=== PATIENT | female | born 1990 | race Caucasian/White ===

== ENCOUNTER 2017-02-23 20:32 | Emergency (ER) | payer OTHER ==
[~2017-02-23] VITALS: Ht 177.8 cm; Wt 71.4 kg
[~2017-02-23 20:32] MED LIST: BCPILLS PO; FLR1 PO; HYD10 PO; SYN50 PO
[2017-02-23 20:36] VITALS: TEMP 36.7; Ht 177.8 cm; Wt 71.4 kg
[2017-02-23] MEDS ORDERED: TACR0.1O6 TOP (20:46)
[2017-02-23] MEDS ORDERED: NORE-39 PO (20:46)
[2017-02-23] MEDS ORDERED: DICY10CA12 PO (20:46)
[2017-02-23] MEDS ORDERED: SYN88 PO (20:46)
[2017-02-23] MEDS ORDERED: CALC1CRE2 TOP (20:46)
[2017-02-23] MEDS ORDERED: HYD10 PO ×2 (20:46)
[2017-02-23] MEDS ORDERED: FLUD0.1T10 PO (20:46)
[2017-02-23] MEDS ORDERED: SODIUM CHLORIDE 0.9% 1000ML 1,000 ML IV ONE (20:58)
[2017-02-23] MEDS ORDERED: SODIUM CHLORIDE 0.9% 1000ML 1,000 ML IV STA (20:58)
--- NOTE | 2017-02-23 21:03 | EMERGENCY ROOM VISIT NOTE ---
History Report prepared by Cory: Luana Proctor Under the Supervision of: Dr. Gui Malcolm M.D. First contact with patient: 20:49 Chief Complaint: HYPOTENSION Stated Complaint: LOW BLOOD PRESSURE, STOMACH PAIN History of Present Illness The patient is a 26 year old female who presents to the Emergency Room with complaints of constant burning lower abdominal pain beginning yesterday. She states that her pain lessened with eating. The patient went to Urgent Care prior to arrival and her blood pressure was 86/50. The patient was referred to the ED for hypotension by Urgent Care. The patient was given Decadron at Urgent Care about an hour ago. She denies any chest pain, shortness of breath, urinary symptoms, blood in stool, lightheadedness or dizziness. She notes a slight fever. The patient has a history of [place]'s disease. Source of History: patient, parent, family Onset: yesterday Position: abdomen Quality: burning Timing: constant Modifying Factors (Relieving): eating Associated Symptoms: + fevers, No chest pain, No SOB, No urinary symptoms Note: Pt denies blood in stool, lightheadedness or dizziness. Review of Systems See HPI for pertinent positives & negatives. A total of 10 systems reviewed and were otherwise negative. Past Medical & Surgical Medical Problems: (1) Addisons disease (2) Hyperkalemia (3) Hypothyroidism (4) Other Dystrophy Of Vulva (5) Vitiligo Surgical Problems: (1) No significant past surgical history Old medical records were reviewed. Nurse's notes were reviewed and I agree with. Family History Breast cancer GRANDMOTHER Heart disease FATHER Hyperthyroidism FATHER Social History Smoking Status: Never Smoker Alcohol Use: occasionally Housing Status: lives with family Occupation Status: employed Current/Historical Medications Scheduled Calcipotriene (Calcipotriene), 1 DOSE TOP 2XWK Ethinyl Estradiol/Norethindr (Loestrin Fe 1.5/30), 1 TAB PO DAILY Fludrocortisone Acetate (Florinef), 0.1 MG PO DAILY Hydrocortisone (Cortef), 15 MG PO QAM Hydrocortisone (Cortef), 10 MG PO QPM Levothyroxine Sodium (Synthroid), 88 MCG PO QAM Tacrolimus (Topical) (Tacrolimus), 1 DOSE TOP 5XWK Scheduled PRN Dicyclomine Hcl (Dicyclomine Hcl), 10 MG PO QID PRN for GI Upset Allergies Coded Allergies: No Known Allergies (Unverified , 02/23/17) Physical Exam Vital Signs Date Time Temp Pulse Resp B/P (MAP) Pulse Ox O2 Delivery O2 Flow Rate FiO2 02/23/17 23:07 74 20 102/65 98 Room Air 02/23/17 22:30 67 18 102/64 99 02/23/17 20:36 36.7 98 18 117/77 97 Room Air Physical Exam General: Non ill appearing young female in no acute distress, breathing comfortably on room air. Normal speech HEENT: Normal cephalic atraumatic. Pupils are equal round and reactive to light. Extraocular movements are intact. Oropharynx is pink with moist mucous membranes. No swelling of the mouth lips or tongue. Neck: Supple with a midline trachea. No meningeal signs or stiffness, no JVD or bruits. No Stridor. Chest: Clear to auscultation bilaterally. No wheezes or rhonchi. No increased work of breathing. Heart: regular rate and rhythm. Abdomen: Minimal central abdominal tenderness no peritonitis, nondistended without rebound guarding or rigidity. Extremities: No cyanosis clubbing or edema. No calf tenderness or assymetry Spine/Back. Non tender to palpation. No CVA tenderness Skin: Good turgor without rashes.Multiple area of micropigmentation. Neurologic exam: Cranial nerves two through 12 are intact. Motor and sensation are intact and symmetrical throughout. Medical Decision & Procedures ER Provider Diagnostic Interpretation: Radiology results as stated below per my review and radiologist interpretation: CHEST ONE VIEW PORTABLE FINDINGS: The lung volumes are normal. No pneumothorax or pleural effusion is present. Lungs are clear. Cardiomediastinal silhouette is normal. Pulmonary vascularity is normal. IMPRESSION: No acute cardiopulmonary findings. Electronically signed by: Garfield Kamara M.D. Laboratory Results 02/23/17 21:16 Red Blood Count 5.08, Mean Corpuscular Volume 82.3, Mean Corpuscular Hemoglobin 29.3, Mean Corpuscular Hemoglobin Concent 35.6, Mean Platelet Volume 10.8, Neutrophils (%) (Auto) 52.7, Lymphocytes (%) (Auto) 35.8, Monocytes (%) (Auto) 8.7, Eosinophils (%) (Auto) 2.2, Basophils (%) (Auto) 0.4, Neutrophils # (Auto) 4.37, Lymphocytes # (Auto) 2.97, Monocytes # (Auto) 0.72, Eosinophils # (Auto) 0.18, Basophils # (Auto) 0.03 02/23/17 21:16 Test 02/23/17 21:16 02/23/17 21:20 White Blood Count 8.29 K/uL (4.8-10.8) Red Blood Count 5.08 M/uL (4.2-5.4) Hemoglobin 14.9 g/dL (12.0-16.0) Hematocrit 41.8 % (37-47) Mean Corpuscular Volume 82.3 fL (80-100) Mean Corpuscular Hemoglobin 29.3 pg (25-34) Mean Corpuscular Hemoglobin Concent 35.6 g/dl (32-36) Platelet Count 349 K/uL (130-400) Mean Platelet Volume 10.8 fL (7.4-10.4) Neutrophils (%) (Auto) 52.7 % Lymphocytes (%) (Auto) 35.8 % Monocytes (%) (Auto) 8.7 % Eosinophils (%) (Auto) 2.2 % Basophils (%) (Auto) 0.4 % Neutrophils # (Auto) 4.37 K/uL (1.4-6.5) Lymphocytes # (Auto) 2.97 K/uL (1.2-3.4) Monocytes # (Auto) 0.72 K/uL (0.11-0.59) Eosinophils # (Auto) 0.18 K/uL (0-0.5) Basophils # (Auto) 0.03 K/uL (0-0.2) RDW Standard Deviation 36.6 fL (36.4-46.3) RDW Coefficient of Variation 12.2 % (11.5-14.5) Immature Granulocyte % (Auto) 0.2 % Immature Granulocyte # (Auto) 0.02 K/uL (0.00-0.02) Anion Gap 7.0 mmol/L (3-11) Est Creatinine Clear Calc Drug Dose 97.0 ml/min Estimated GFR () 95.8 Estimated GFR (Non- 82.7 BUN/Creatinine Ratio 17.9 (10-20) Calcium Level 9.5 mg/dl (8.5-10.1) Total Bilirubin 0.3 mg/dl (0.2-1) Direct Bilirubin < 0.1 mg/dl (0-0.2) Aspartate Amino Transf (AST/SGOT) 22 U/L (15-37) Alanine Aminotransferase (ALT/SGPT) 17 U/L (12-78) Alkaline Phosphatase 49 U/L (45-117) Total Protein 8.1 gm/dl (6.4-8.2) Albumin 4.6 gm/dl (3.4-5.0) Lipase 151 U/L (73-393) Thyroid Stimulating Hormone (TSH) 3.300 uIu/ml (0.300-4.500) Human Chorionic Gonadotropin, Qual NEG (NEG) Urine Color YELLOW Urine Appearance CLEAR (CLEAR) Urine pH 6.0 (4.5-7.5) Urine Specific [place] 1.011 (1.000-1.030) Urine Protein NEG (NEG) Urine Glucose (UA) NEG (NEG) Urine Ketones NEG (NEG) Urine Occult Blood 2+ (NEG) Urine Nitrite NEG (NEG) Urine Bilirubin NEG (NEG) Urine Urobilinogen NEG (NEG) Urine Leukocyte Esterase MODERATE (NEG) Urine WBC (Auto) 10-30 /hpf (0-5) Urine RBC (Auto) 5-10 /hpf (0-4) Urine Hyaline Casts (Auto) 1-5 /lpf (0-5) Urine Epithelial Cells (Auto) >30 /lpf (0-5) Urine Bacteria (Auto) 1+ (NEG) Laboratory studies as stated above per my review. Medications Administered Medications (Trade) Dose Ordered Sig/Fausto Route Start Time Stop Time Status Last Admin Dose Admin Sodium Chloride 1,000 ml @ 999 mls/hr Q1H1M STAT IV 02/23/17 20:58 02/23/17 21:58 DC 02/23/17 20:58 999 MLS/HR Sodium Chloride 1,000 ml @ 200 mls/hr Q5H ONCE IV 02/23/17 20:58 02/23/17 23:39 DC 02/23/17 20:58 200 MLS/HR ECG Indication: abdominal pain Rate (beats per minute): 76 Rhythm: normal sinus Findings: no acute ischemic change Comparison ECG Date: 10/15/15 Change: no significant change ED Course 2055: Past medical records reviewed. The patient was evaluated in room B12B, and a complete history and physical examination were performed. 2057: Sodium Chloride 1000 ml @ 200 mls/hr IV, Sodium Chloride 1000 ml @ 999 mls /hr IV. 2100: Talked to the pharmacist. She said 4 mg of Decadron should cover adrenal crisis. 2241: The patient feels back at baseline and would like to go home. 2258: The patient successfully completed walking test. 2311: Upon reevaluation, the patient is resting comfortably. I discussed the results and treatment plan with her. She verbalized agreement of the treatment plan. The patient was discharged home. Medical Decision Differential diagnosis includes but is not limited too: adrenal crisis, dehydration, infection, electrolyte metabolic abnormality. This patient comes in as described above. She was placed in room B12. She is here for treatment and evaluation of hypotension. She was seen at urgent care after she had some mild epigastric burning and her blood pressure was low. 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 She's been normotensive during her entire stay here. IV access established and she was given a normal saline bolus. She was monitored her EKG does not show acute ischemic changes or ectopy . She's not missed any dosages. She's had no fever or white count to suggest infection. Her abdomen is benign and she's asymptomatic in that regards. She's had nothing to suggest liver, gallbladder, or pancreas disease. Her sodium is mildly low at 129 and she has no other acute electrode or metabolic abnormalities. She is able ambulate with any dizzy without dizziness or any symptoms . She is able to drink without any symptoms. I talked to the patient and her parents at length. I think it is reasonable to discharge her to home with close follow-up. she's received steroids and she's can take stress dose steroids at home for the next couple days. drink plenty fluids. return if: recurrent symptoms, weakness, any new problems or concerns. They're happy with the plan and she was discharged to home. Medication Reconcilliation Current Medication List: was personally reviewed by me Blood Pressure Screening Patient's blood pressure: Low blood pressure Blood pressure disposition: Did not require urgent referral Impression Primary Impression: Hypothyroidism Additional Impression: Adrenal insufficiency Scribe Attestation The scribe's documentation has been prepared under my direction and personally reviewed by me in its entirety. I confirm that the note above accurately reflects all work, treatment, procedures, and medical decision making performed by me. Departure Information Dispostion Home / Self-Care Referrals Parul James D.O. (PCP) Forms HOME CARE DOCUMENTATION FORM, IMPORTANT VISIT INFORMATION, WORK / SCHOOL INSTRUCTIONS Patient Instructions My [facility] Additional Instructions Rest. Take your stress dose of steroids next 2 days (double the amount) Drink plenty of fluids Return if: worsening of symptoms, dizzy, vomiting, any new problems or concerns Follow-up with your doctor tomorrow for recheck Problem Qualifiers
[2017-02-23 21:29] LABS: BASO % 0.4 %; BASO ABS # 0.03 K/uL (0-0.2); COMPLETE YES; EOS % 2.2 %; HEMATOCRIT 41.8 % (37-47); IG% 0.2 %; LYMPH % 35.8 %; LYMPH ABS # 2.97 K/uL (1.2-3.4); MEAN CELL VOLUME 82.3 fL (80-100); MEAN CORPUSCULAR HEMOGLOBIN 29.3 pg (25-34); MEAN CORPUSCULAR HGB CONC 35.6 g/dl (32-36); MEAN PLATELET VOLUME 10.8 fL (7.4-10.4); MONO % 8.7 %; NEUT % 52.7 %; PLATELET COUNT 349 K/uL (130-400); RED BLOOD COUNT 5.08 M/uL (4.2-5.4); WHITE BLOOD COUNT 8.29 K/uL (4.8-10.8)
--- NOTE | 2017-02-23 21:30 | DIAGNOSTIC IMAGING REPORT ---
CHEST ONE VIEW PORTABLE CLINICAL HISTORY: Chest pain. COMPARISON STUDY: Chest radiograph October 09, 2015. FINDINGS: The lung volumes are normal. No pneumothorax or pleural effusion is present. Lungs are clear. Cardiomediastinal silhouette is normal. Pulmonary vascularity is normal. IMPRESSION: No acute cardiopulmonary findings. Electronically signed by: Garfield Kamara M.D. 02/23/2017 9:29 PM Dictated Date/Time: 02/23/2017 9:29 PM
[2017-02-23 21:48] LABS: ALT/SGPT 17 U/L (12-78); BLOOD UREA NITROGEN 17 mg/dl (7-18); BUN/CREATININE RATIO 17.9 (10-20); CALCIUM 9.5 mg/dl (8.5-10.1); CARBON DIOXIDE 25 mmol/L (21-32); CHLORIDE 97 mmol/L (98-107); CREATININE 0.95 mg/dl (0.60-1.20); GLUCOSE 84 mg/dl (70-99); POTASSIUM 4.5 mmol/L (3.5-5.1); SODIUM 129 mmol/L (136-145)
[2017-02-23 21:56] LABS: PREG INTERNAL NEGATIVE QC NEG CLEAR BACKGROUND; PREG INTERNAL POSITIVE QC POS CONTROL LINE
[2017-02-23 21:58] LABS: ALKALINE PHOSPHATASE 49 U/L (45-117); AST/SGOT 22 U/L (15-37)
[2017-02-23 22:19] LABS: URINE APPEARANCE CLEAR (CLEAR); URINE BILIRUBIN NEG (NEG); URINE COLOR YELLOW; URINE EPITHELIAL CELL AUTO >30 /lpf (0-5); URINE NITRITE NEG (NEG); URINE SPECIFIC GRAVITY 1.011 (1.000-1.030); UROBILINOGEN NEG (NEG)
[2017-02-23 22:23] LABS: MANUAL MICROSCOPIC REQUIRED? NO; REVIEW REQ? NO
[2017-02-23 23:07] VITALS: BP 102/65; PULSE 74; O2SAT 98
== END 2017-02-23 23:24 | disposition home or self-care (01) ==
LOC: C.EDB 20:33
DX: E03.9 Hypothyroidism, unspecified (principal); E27.40 Unspecified adrenocortical insufficiency; E71.5 Peroxisomal disorders; Z79.899 Other long term (current) drug therapy; Z82.49 Family history of ischemic heart disease and other diseases of the circulatory system; Z80.3 Family history of malignant neoplasm of breast

== ENCOUNTER 2019-01-26 17:20 | Inpatient (IN) ==
[2019-01-26] MEDS ORDERED: OXYTOCIN 30 UNITS/500 ML BAG IV PRN ×2 (17:39→23:58)
--- NOTE | 2019-01-26 17:48 | History & Physical Report ---
Date of Service January 26, 2019 Assessment & Plan (1) Adrenal insufficiency: 28yo at 40.4 weeks GA. Presents in active labor. 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 1. Fetus: Cat 1 2. Labor: Active 3. Vitals: Stable 4. GBS neg Steroid stress dose: Hydrocortisone 100mg IV q8 in labor, 50 mg IV q8h PPD #1, then Hydrocortisone 20mg po bid (2) Polyglandular autoimmune syndrome: (3) Hypothyroid in , antepartum: (4) Term : History of Present Illness Primary Care Provider: Parul James, DO 28yo at 40.4 weeks GA. Presents in active labor. 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 Allergies Allergy/AdvReac Type Severity Reaction Status Date / Time No Known Allergies Allergy Verified 01/26/19 16:20 Home Medications Home Medications Medication Instructions Recorded Confirmed Type PNV cmb#95-ferrous fumarate-FA 1 tab PO DAILY 06/07/18 01/26/19 History [] doxylamine-pyridoxine (vit B6) 1 tab PO DAILY PRN #10 tab 06/07/18 01/26/19 Rx [Diclegis] fludrocortisone 0.1 mg PO DAILY PRN 06/07/18 01/26/19 History hydrocortisone 20 mg PO DAILY 06/07/18 01/26/19 History levothyroxine 112 mcg PO DAILY 10/04/18 01/26/19 History hydrocortisone sodium succinate IM HS PRN #4 ea 01/12/19 01/26/19 History 100 mg solution for injection pediatric multivitamin no.76 PO 01/12/19 01/26/19 History syringe with needle MS 01/12/19 01/26/19 History syringe with needle, safety 3 mL #100 ea 01/18/19 01/26/19 History 25 gauge x 5/8" Patient History Family History Grandmother (Maternal) Breast cancer Father Thyroid disease Dyslipidemia Nephrolithiasis Other No pertinent family history Social History Preferred Language: Marshallese Communication Ability: Effective Beliefs That Will Affect Care: None marital status: Current Living Situation: Spouse Other Information That Helps Us Care for You: No Feels Safe at Home: Yes Safety Concerns: Feels Safe At This Time Smoking Status: Never smoker Hx Alcohol Use: No Hx Substance Use: No Physical Exam Genitourinary: Manual OB Exam: + cervical dilation 6 cm, + cervical effacement 90% and + station 0 OB Exam Monitor Tracing: + external FHT monitor used, + external uterine monitor used and + category I Results & Data Vital Signs (Past 12 Hours) Vital Signs Temp Pulse Resp BP 01/26/19 17:26 46 L 104/59 L 01/26/19 17:25 37.0 C 20
[2019-01-26 18:07] LABS: Hematocrit (blood only) 40.4 % (37-47); Hemoglobin 14.5 g/dL (12.0-16.0); Mean Corpuscular Volume 84.7 fL (80-100); Mean Platelet Volume 12.1 fL (7.4-10.4); Platelet Count 218 K/uL (130-400); RDW Coefficient of Variation 13.2 % (11.5-14.5); RDW Standard Deviation 40.7 fL (36.4-46.3); Red Blood Count 4.77 M/uL (4.2-5.4); White Blood Count 11.07 K/uL (4.8-10.8)
[2019-01-26] MEDS: LACTATED RINGER'S 1,000 ML IV PRN ×2 (18:18→19:47)
[2019-01-26] MEDS ORDERED: BUPIVACAINE 0.25% 30 ML VIAL ONE (18:24)
[2019-01-26] MEDS ORDERED: fentaNYL 2MCG/ML ROPIV 1.25MG/ML 100 ML BAG EPI ONE (18:25)
[2019-01-26] MEDS ORDERED: fentaNYL citrate 100 MCG/2 ML VIAL ONE (18:25)
[2019-01-26] MEDS ORDERED: HYDROCORTISONE SOD 100 MG in SYRINGE 0 ML IV SCH ×2 (18:30→22:00)
[2019-01-26] MEDS ORDERED: ePHEDrine sulfate 50 MG/ML AMP IV PRN (18:46)
[2019-01-26] MEDS ORDERED: NALOXONE HCL 0.4 MG/1 ML VIAL/CARP IV PRN (18:46)
[2019-01-26] MEDS ORDERED: ONDANSETRON INJ 2 MG/ML 2 ML VIAL IV PRN (18:46)
[2019-01-26] MEDS ORDERED: fentaNYL 2MCG/ML ROPIV 1.25MG/ML 100 ML BAG EPI PRN (18:46)
[2019-01-26] MEDS ORDERED: DiphenhydrAMINE HCL 50 MG/ML VIAL IV PRN (18:46)
[2019-01-26] MEDS ORDERED: NALBUPHINE HCL INJ 10 MG/ML AMP IV PRN (18:46)
[2019-01-26] MEDS ORDERED: NALOXONE HCL 1 MG in SODIUM CHLORIDE 0.9% 1000ML 1,000 ML IV PRN (18:46)
--- NOTE | 2019-01-26 18:47 | Anesthesiology Consultation ---
Date of Service January 26, 2019 Assessment & Plan Chart Review Chart Review: Patient NOT seen in Pre Admission Testing and Acceptable Risk for Labor Epidural Consults Requested none ASA ASA2 Proposed Anesthesia Anesthesia Type: Labor Epidural and CSE Risk / Benefits Reviewed With: PT / POA / Parent / Guardian, Accepts Plan and Informed Consent Obtained History Height/Weight Height: 5 ft 10 in Weight: 87.09 kg Allergies Allergy/AdvReac Type Severity Reaction Status Date / Time No Known Allergies Allergy Verified 01/26/19 16:20 Medications Home Medications Medication Instructions Recorded Confirmed Last Taken PNV cmb#95-ferrous fumarate-FA 1 tab PO DAILY 06/07/18 01/26/19 01/25/19 09:00 [] fludrocortisone 0.1 mg PO DAILY PRN 06/07/18 01/26/19 01/26/19 09:00 hydrocortisone 20 mg PO DAILY 06/07/18 01/26/19 01/26/19 08:00 levothyroxine 112 mcg PO DAILY 10/04/18 01/26/19 01/26/19 06:00 hydrocortisone sodium succinate IM HS PRN #4 ea 01/12/19 01/26/19 Unknown 100 mg solution for injection syringe with needle MS 01/12/19 01/26/19 Unknown syringe with needle, safety 3 mL #100 ea 01/18/19 01/26/19 Unknown 25 gauge x 5/8" Active Medications Generic Name Dose Route Start Last Admin Trade Name Freq PRN Reason Stop Dose Admin Lactated Ringer's 1,000 mls @ 125 mls/hr 01/26/19 17:39 01/26/19 18:18 Lr IV 01/28/19 17:38 999 mls/hr .Q8H PRN Administration L&D Protocol Protocol NPO Date Last Intake of Fluids: 01/26/19 Time Last Intake of Fluids: 16:00 Date Last Intake of Solids: 01/26/19 Time Last Intake of Solids: 11:00 Past Medical History Medical History Addisons disease (Chronic) Hypothyroidism (Chronic) Vitiligo (Chronic) Hyperkalemia (Acute) Exercise / Class Metabolic Activity II 4-5 Yardwork/Stairs/Walk up hill Past Family History Family History Grandmother (Maternal) Breast cancer Father Thyroid disease Dyslipidemia Nephrolithiasis Other No pertinent family history Past Anesthesia History No Hx of Anesthesia Complications and No Family Hx of Anesthesia Complications History of PONV No Hx of PONV and No Hx of Motion Sickness Social History Smoking Status: Never smoker Hx Alcohol Use: No Hx Substance Use: No substance use type: does not use Review of Systems no chest pain or sob Physical Exam Vital Signs Last Vital Signs Temp 37.0 C 01/26/19 17:25 Pulse 46 L 01/26/19 17:26 Resp 20 01/26/19 17:25 BP 104/59 L 01/26/19 17:26 ENMT Mouth: no TMJ abnormality Thyromental Distance: > or= 3.5 Finger Breadths Mallampati Class: II Neck normal visual inspection Respiratory normal respiratory effort Auscultation: lungs clear to auscultation bilaterally Cardiovascular Rate/Rhythm: regular rate and regular rhythm Musculoskeletal Spine: normal cervical ROM Neurologic moves all extremities Psychiatric Orientation: alert and oriented x 3 Testing Laboratory Results 01/26/19 17:58
[2019-01-26 18:51] LABS: Mean Corpuscular Hgb Conc 35.9 g/dL (32-36)
[2019-01-26] MEDS ORDERED: ACETAMINOPHEN 325 MG TAB PO PRN (23:58)
[2019-01-26] MEDS ORDERED: HYDROCORTISONE ACETATE 25 MG SUPP PR PRN (23:58)
[2019-01-26] MEDS ORDERED: IBUPROFEN 600 MG TAB PO PRN (23:58)
[2019-01-26] MEDS ORDERED: BISACODYL 10 MG SUPP PR PRN (23:58)
[2019-01-26] MEDS ORDERED: BENZOCAINE 20% AER SPR 82.5 GM CAN EXT PRN (23:58)
[2019-01-26] MEDS ORDERED: SUPERCREAM 0.870% 15 GM JAR EXT PRN (23:58)
[2019-01-26] MEDS ORDERED: DIPHTHERIA/TETANUS/PERTUSSIS 0.5 ML SYR/VIAL IM ONE (23:58)
[2019-01-27] MEDS ORDERED: FLUDROCORTISONE ACETATE 0.1 MG TAB PO PRN (00:03)
--- NOTE | 2019-01-27 00:05 | Anesthesia Procedure Note ---
Date of Service January 27, 2019 Anesthesia Post Epidural Note Vital Signs Vital Signs: Temp Pulse Resp BP Pulse Ox 37.0 C 78 20 87/54 L 90 01/26/19 21:00 01/26/19 23:47 01/26/19 22:00 01/26/19 23:47 01/26/19 22:58 Pain Intensity Abdomen: Pain Intensity: 0 Notes Mental Status: alert / awake / arousable and participated in evaluation Nausea / Vomiting: adequately controlled Pain: adequately controlled Airway Patency, RR, SpO2: stable & adequate BP & HR: stable & adequate Hydration State: stable & adequate Neuraxial Anesthesia: was administered and sensory block is resolving Anesthetic Complications: no major complications apparent and Pt Satisfied with anesthetic care Epidural: Removed without complications and With tip intact
--- NOTE | 2019-01-27 01:34 | Delivery Summary ---
DATE OF OPERATION: 01/26/2019 PROCEDURE: Spontaneous vaginal delivery with first degree perineal laceration repair. SURGEON: Cali Liu MD PREOPERATIVE DIAGNOSES: 1. Single intrauterine at 40 weeks 4 days gestational age. 2. Labor. 3. Polyglandular autoimmune syndrome. 4. Adrenal insufficiency. 5. Hypothyroidism. POSTOPERATIVE DIAGNOSES: 1. Single intrauterine at 40 weeks 4 days gestational age. 2. Labor. 3. Polyglandular autoimmune syndrome. 4. Adrenal insufficiency. 5. Hypothyroidism. 6. Status post delivery. ESTIMATED BLOOD LOSS: 200 mL. DRAINS: None. FLUIDS: Continuous lactated ringer. URINE OUTPUT: Not measured. COMPLICATIONS: None. FINDINGS: Viable with weight pending and Apgars of 8 and 9 at 1 and 5 minutes respectively. INDICATIONS: Ms. Lissa Green is a 28-year-old G1, P0, admitted at 40 weeks 4 days gestational age in active labor. The patient progressed with artificial rupture of membranes which occurred at 9 cm dilated. The patient progressed to complete-complete +2. The patient received epidural for anesthesia and was given hydrocortisone 100 mg IV q.8 hours for stress dose steroids secondary to adrenal insufficiency. DESCRIPTION OF PROCEDURE: The patient progressed to 10 cm dilated, 100% effaced, +2 station, pushed over intact perineum with epidural anesthesia and delivered a viable with weight and Apgars as noted above. Head of the delivered in JG position, restituted to left transverse. No nuchal cord was noted. Body and shoulders quickly followed. was noted to be vigorous soon after delivery. A 1-minute delayed cord clamping was initiated after which the cord was double clamped and cut. Cord blood was then obtained. Attention was then turned to deliver the placenta, delivered intact, 3-vessel cord, gentle cord traction. On inspection of perineum, vagina, and cervix, noted a first degree perineal laceration which was repaired with 3-0 Vicryl in a continuous running locked suture. Needle, sponge and instrument counts were correct at the completion of the case. I attest to the content of the Intraoperative Record and any orders documented therein. Any exception s are noted below.
[2019-01-27] MEDS: HYDROCORTISONE SOD 50 MG in SYRINGE 0 ML IV SCH ×3 (02:21→17:53)
[2019-01-27] MEDS: LEVOTHYROXINE SODIUM 112 MCG TABLET PO SCH (07:00)
[2019-01-27 07:36] LABS: Hematocrit (blood only) 37.9 % (37-47); Hemoglobin 13.3 g/dL (12.0-16.0)
[2019-01-27] MEDS: DOCUSATE SODIUM 100 MG CAP PO SCH ×2 (07:59→20:00)
[2019-01-27] MEDS: PRENATAL VITAMIN 1 TAB PO SCH (07:59)
[2019-01-27] MEDS ORDERED: BISACODYL 5 MG TABEC PO SCH (20:00)
--- NOTE | 2019-01-28 04:49 | Obstetrical Progress Note ---
Date of Service January 28, 2019 Assessment & Plan (1) Normal delivery at term: stable for d/c home, instructions reviewed. plan f/u 6 wks pp check. she should call endo as noted below. (2) Hypothyroid in , antepartum: (3) Adrenal insufficiency: (4) Addisons disease: pt to call her endo on tuesday. per their note she should resume normal pills but 20mg po bid is not her nl dosing. she says 10mg po bid is. Will resume that and call them to confirm tuesday. Subjective Ambulation: ambulating normally Voiding: no voiding problems Diet Tolerance:: regular diet Lochia:: Small Feeding Type:: breast feeding doing well. Physical Exam Constitutional WD/WN, vitals as above Respiratory normal respiratory effort, lungs clear to auscultation Cardiovascular Rate/Rhythm: regular rate and regular rhythm Gastrointestinal (Abdomen) Inspection/Auscultation: abdomen normal to inspection Percussion/Palpation: abdomen soft; abdomen nontender ff 2 down Musculoskeletal nt calves Neurologic grossly normal Psychiatric A+Ox3, euthymic affect Results & Data Vital Signs (Past 12 Hours) Vital Signs Temp Pulse Resp BP Pulse Ox 01/28/19 00:00 98.6 F 77 16 111/60 95 01/27/19 19:55 98.4 F 89 16 122/68 96
[2019-01-28] MEDS: LEVOTHYROXINE SODIUM 112 MCG TABLET PO SCH (06:24)
[2019-01-28] MEDS: DOCUSATE SODIUM 100 MG CAP PO SCH (08:58)
[2019-01-28] MEDS: PRENATAL VITAMIN 1 TAB PO SCH (08:58)
[2019-01-28] MEDS ORDERED: HYDROCORTISONE 10 MG TAB PO SCH ×2 (09:00)
== END 2019-01-28 14:40 | disposition home or self-care (01) | DRG 806 ==
LOC: OPB 17:20 → 4S1 17:22 → 4S2 01-27 06:49

== ENCOUNTER 2021-11-17 17:13 | Inpatient (IN) ==
[2021-11-17] MEDS ORDERED: OXYTOCIN 30 UNITS/500 ML BAG IV PRN ×2 (18:33)
[2021-11-17] MEDS ORDERED: HYDROCORTISONE SOD SUCCINATE 100 MG/2 ML VIAL IM STA (18:47)
[2021-11-17] MEDS ORDERED: HYDROCORTISONE SOD SUCCINATE 100 MG/2 ML VIAL IV STA (18:47)
--- NOTE | 2021-11-17 18:55 | History & Physical Report ---
Date of Service November 17, 2021 Assessment & Plan (1) Encounter for supervision of normal in multigravida: Plan: Admit to L&D. Labs/EFM/toco. Based on recommendations from endocrine, will plan for 100mg IV hydrocortisone, first dose on admission and then Q8h thereafter while in labor. She then will plan to take PO hydrocortisone, typically takes 10mg BID (written as 20mg QD to get enough tabs from pharmacy - she cuts these in half) - but will "double up the dose" of the PO hydrocortisone for the first day after delivery to 20mg BID, then will go back to normal dosing the following day. Additionally, plan from endocrine is to decrease levothyroxine to 100mcg after delivery and recheck in 2-3 months. Start pitocin for induction, ok for epidural when she desires. History of Present Illness Chief Complaint: IOL Primary Care Provider: Parul James, DO 30yo @ 41 09/24, IOL for postdates. complicated by: Hypothyroid *Check TFTs Q4wks Hx Addisons Disease -Endo recommendations for delivery (see endo note from [facility]) *Vaginal delivery-Start stress dose steroid during labor IV hydrocortisone 100mg with labor and then continue every 8hrs throughout the labor, Double up the hydrocortisone to 1 more day after delivery and go back to usual regimen as long as doing well after delivery * Section- IV hydrocortisone 100mg before anesthesia and then continue 100mg every 8hrs for 1 day and then double up the hydrocortisone to 1 more day after delivery and go back to usual regimen as long as doing well after delivery. Post-Dates Induction 11/17/21 Group Beta Strep Positive Urine-treat in labor renal pyelectasis-resolved Serial scans Allergies Allergy/AdvReac Type Severity Reaction Status Date / Time No Known Allergies Allergy Verified 11/12/21 15:32 Home Medications Medication Instructions Recorded Confirmed Type fludrocortisone 0.1 mg tablet 0.1 mg PO DAILY PRN 06/07/18 11/17/21 History hydrocortisone 20 mg tablet 20 mg PO DAILY 06/07/18 11/17/21 History levothyroxine 112 mcg tablet See Rx Instructions .ROUTE 03/06/19 11/17/21 Rx .COMPLEX #30 tablet cholecalciferol (vitamin D3) PO 04/06/21 11/12/21 History geriatric [id number]-zlyw-eiuc PO 04/06/21 11/12/21 History Patient History Medical History (Updated 09/29/21 @ 15:54 by Monae Buckner MD) Addisons disease Hyperkalemia Hypothyroid in , antepartum Hypothyroidism Hypothyroidism Varicella vaccination Vitiligo Surgical History (Updated 04/06/21 @ 13:18 by Sarah Sommers, LUCAS) H/O wisdom tooth extraction Family History (Updated 04/06/21 @ 13:10 by Sarah Sommers, LUCAS) Grandmother (Maternal) Breast cancer Father Thyroid disease Dyslipidemia Nephrolithiasis Other No pertinent family history Denies family history of Ovarian cancer Prostate cancer Colorectal cancer Social History (Updated 04/06/21 @ 13:11 by Sarah Sommers RN) Smoking Status: Never smoker Second Hand Exposure: No; Hx Alcohol Use: No Hx Substance Use: No Preferred Language: Kittitian Communication Ability: Effective Visual Impairment: No Limitations Hearing Ability: Normal Warehouse Handler Required: No Beliefs That Will Affect Care: None marital status: marital status details: Deangelo Green (29) [phone] Current Living Situation: Spouse and Family Current Living Situation Comment: lives with spouse and daughter. 1 dog. current occupational status: employed current occupation: [employer] Other Information That Helps Us Care for You: No Feels Safe at Home: Yes Assistive Devices: None Review of Systems All systems reviewed & are unremarkable except as noted in HPI & below Physical Exam Physical Exam: T Cat 1 [place] rare SVE 4/80/-1 Constitutional: WD/WN, vitals as above Respiratory: normal respiratory effort, lungs clear to auscultation no respiratory distress Cardiovascular: Rate/Rhythm: regular rate and regular rhythm Gastrointestinal (Abdomen): Inspection/Auscultation: abdomen normal to inspection Percussion/Palpation: abdomen soft; abdomen nontender Gravid. No s/s chorio or abruption. Skin: no rashes, warm and dry Psychiatric: A+Ox3, euthymic affect Results & Data ([facility]) Vital Signs (Past 12 Hours) Vital Signs Temp Pulse Resp BP 11/17/21 17:52 36.7 C 20 11/17/21 17:30 36.7 C 88 20 114/68 Coding Level of Care Code None Diagnoses Encounter for supervision of normal in multigravida Z34.80
[2021-11-17] MEDS ORDERED: PENICILLIN G POTASSIUM 6 MU in DEXTROSE 5% 250 ML IV STA (19:20)
[2021-11-17 19:25] LABS: Hematocrit (blood only) 33.2 % (37-47); Hemoglobin 11.3 g/dL (12.0-16.0); Mean Corpuscular Hemoglobin 28.5 pg (25-34); Mean Corpuscular Volume 83.6 fL (80-100); Mean Platelet Volume 11.6 fL (7.4-10.4); Platelet Count 212 K/uL (130-400); RDW Coefficient of Variation 13.5 % (11.5-14.5); RDW Standard Deviation 40.7 fL (36.4-46.3); Red Blood Count 3.97 M/uL (4.2-5.4); White Blood Count 7.13 K/uL (4.8-10.8)
[2021-11-17] MEDS ORDERED: HYDROCORTISONE SOD 100 MG in SYRINGE 0 ML IV ONE (19:30)
[2021-11-17 19:36] LABS: Albumin Globulin Ratio 1.3 (0.9-2); Albumin Level 3.3 gm/dl (3.4-5.0); BUN Creatinine Ratio 10.9 (10-20); Bilirubin,Total 0.4 mg/dl (0.2-1.0); Calcium 8.5 mg/dl (8.5-10.1); Creatinine Clr Calc Pharmacy 153.7 ml/min; Est GFR (African American) 138.8 ml/min; Est GFR (Non-African American) 119.7 ml/min; Globulin 2.5 gm/dl (2.5-4.0); Potassium 3.5 mmol/L (3.5-5.1); Total Protein 5.8 gm/dl (6.0-8.3)
[2021-11-17] MEDS: LACTATED RINGER'S 1,000 ML IV PRN ×2 (22:40→23:47)
[2021-11-17] MEDS ORDERED: ePHEDrine sulfate 50 MG/ML AMP ONE (23:12)
[2021-11-17] MEDS ORDERED: BUPIVACAINE 0.25% 30 ML VIAL ONE (23:12)
[2021-11-17] MEDS ORDERED: fentaNYL citrate 100 MCG/2 ML VIAL ONE (23:12)
[2021-11-17] MEDS ORDERED: SODIUM CHLORIDE 0.9% INJ 10 ML VIAL ONE (23:12)
[2021-11-17] MEDS ORDERED: fentaNYL 2MCG/ML ROPIVACAINE 1.25MG/ML 100 ML BAG EPI ONE (23:13)
--- NOTE | 2021-11-17 23:15 | Anesthesiology Consultation ---
Date of Service November 17, 2021 Assessment & Plan Chart Review Chart Review: Acceptable Risk for Labor Epidural Consults Requested none History Height/Weight Height: 5 ft 10 in Weight: 86.581 kg Allergies Allergy/AdvReac Type Severity Reaction Status Date / Time No Known Allergies Allergy Verified 11/12/21 15:32 Medications Home Medications Medication Instructions Recorded Confirmed Last Taken fludrocortisone 0.1 mg tablet 0.1 mg PO DAILY PRN 06/07/18 11/17/21 11/17/21 0800 hydrocortisone 20 mg tablet 20 mg PO DAILY 06/07/18 11/17/21 11/17/21 0800 levothyroxine 112 mcg tablet See Rx Instructions .ROUTE 03/06/19 11/17/21 11/17/21 .COMPLEX #30 tablet 0800 cholecalciferol (vitamin D3) PO 04/06/21 11/12/21 Unknown geriatric [id number]-fxod-zizn PO 04/06/21 11/12/21 Unknown Active Medications Generic Name Dose Route Start Last Admin Trade Name Freq PRN Reason Stop Dose Admin Lactated Ringer's 1,000 mls @ 125 mls/hr 11/17/21 18:33 11/17/21 22:40 Lr IV 11/19/21 18:32 999 mls/hr .Q8H PRN Administration L&D Protocol Protocol Past Medical History Medical History (Updated 09/29/21 @ 15:54 by Monae Buckner MD) Addisons disease Hyperkalemia Hypothyroid in , antepartum Hypothyroidism Hypothyroidism Varicella vaccination Vitiligo Past Family History Family History (Updated 04/06/21 @ 13:10 by Sarah Sommers RN) Grandmother (Maternal) Breast cancer Father Thyroid disease Dyslipidemia Nephrolithiasis Other No pertinent family history Denies family history of Ovarian cancer Prostate cancer Colorectal cancer Past Surgical History Surgical History (Updated 04/06/21 @ 13:18 by Sarah Sommers RN) H/O wisdom tooth extraction Social History Smoking Status: Never smoker Hx Alcohol Use: No Hx Substance Use: No substance use type: does not use Physical Exam Vital Signs Last Vital Signs Temp 36.9 C 11/17/21 22:54 Pulse 78 11/17/21 23:13 Resp 18 11/17/21 22:54 BP 104/57 L 11/17/21 23:13 Pulse Ox 97 11/17/21 23:13 Testing Laboratory Results 11/17/21 19:00 11/17/21 19:00 Blood Type O Positive 11/17/21 19:00 Antibody Screen NEGATIVE 11/17/21 19:00
[2021-11-17] MEDS ORDERED: NALOXONE HCL 1 MG in SODIUM CHLORIDE 0.9% 1000ML 1,000 ML IV PRN (23:18)
[2021-11-17] MEDS ORDERED: NALBUPHINE HCL INJ 10 MG/ML AMP IV PRN (23:18)
[2021-11-17] MEDS ORDERED: diphenhydrAMINE 50 MG/ML VIAL IV PRN (23:18)
[2021-11-17] MEDS ORDERED: fentaNYL 2MCG/ML ROPIVACAINE 1.25MG/ML 100 ML BAG EPI PRN (23:18)
[2021-11-17] MEDS ORDERED: NALOXONE HCL 0.4 MG/1 ML VIAL/CARP IV PRN (23:18)
[2021-11-17] MEDS ORDERED: ePHEDrine sulfate 50 MG/ML AMP IV PRN (23:18)
[2021-11-17] MEDS ORDERED: PENICILLIN G POTASSIUM 3 MU in DEXTROSE 5% 100 ML IV PRN (23:20)
[2021-11-18] MEDS ORDERED: HYDROCORTISONE SOD 100 MG in SYRINGE 0 ML IV ONE (03:00)
--- NOTE | 2021-11-18 03:10 | Delivery Summary ---
Vaginal Delivery Summary Date of Service November 18, 2021 Vaginal Delivery Summary and 1st Degree LAC Vaginal Delivery Summary: Pre-delivery diagnoses: 30yo @ 41 5/7, IOL postdates, [place]'s disease, hypothyroidism, GBS+ Post-delivery diagnoses: same Procedure: spontaneous vaginal delivery Surgeon: Carine Pacheco DO Complications: none Findings: Viable . Apgars: 9/10. Weight pending, please see nursery records Estimated blood loss: 300ml Description of delivery: The patient progressed to complete with epidural anesthesia. She then began to push. She spontaneously vaginally delivered a viable from the cephalic presentation. The head delivered in JG position. The anterior shoulder delivered, followed by the posterior shoulder, followed by the body. No nuchal. The baby was placed on mother's abdomen and a spontaneous cry was heard. Delayed cord clamping was employed, and the cord was doubly clamped and cut. Cord blood was obtained. The placenta was delivered spontaneously intact with a 3-vessel cord. The uterus and vagina were swept of clots and debris. IV pitocin was given. The uterus became firm. The cervix, vagina, and perineum were inspected and a 1st degree perineal laceration was noted and repaired with 3-0 vicryl. Excellent hemostasis was observed. The mother and baby are recovering in stable and good condition in the room. Sponge, needle and instrument counts were correct x 2. Carine Pacheco DO [facility] Vaginal Delivery Charge Vaginal Delivery Codes: 75215 global code for the antepartum, delivery, and post- Delivery Type Details: and 1st Degree LAC
[2021-11-18] MEDS ORDERED: ACETAMINOPHEN 325 MG TAB PO PRN (04:44)
[2021-11-18] MEDS ORDERED: bisacodyL 10 MG SUPP PR PRN (04:44)
[2021-11-18] MEDS ORDERED: OXYTOCIN 30 UNITS/500 ML BAG IV PRN (04:44)
[2021-11-18] MEDS ORDERED: oxyCODONE/ACETAMINOPHEN 5mg/325mg TAB PO PRN (04:44)
[2021-11-18] MEDS ORDERED: HYDROCORTISONE ACETATE 25 MG SUPP PR PRN (04:44)
[2021-11-18] MEDS ORDERED: DIPHTHERIA/TETANUS/PERTUSSIS 0.5 ML SYR/VIAL IM ONE (04:44)
[2021-11-18] MEDS ORDERED: FLUDROCORTISONE ACETATE 0.1 MG TAB PO PRN (04:44)
[2021-11-18] MEDS ORDERED: BENZOCAINE 20% AER SPR 82.5 GM CAN EXT PRN (04:44)
--- NOTE | 2021-11-18 05:40 | Anesthesia Procedure Note ---
Date of Service November 18, 2021 Anesthesia Post Epidural Note Vital Signs Vital Signs: Temp Pulse Resp BP Pulse Ox 36.9 C 78 18 110/56 L 99 11/17/21 22:54 11/18/21 04:21 11/18/21 04:00 11/18/21 04:21 11/18/21 01:43 Notes Mental Status: alert / awake / arousable Nausea / Vomiting: adequately controlled Pain: adequately controlled Airway Patency, RR, SpO2: stable & adequate BP & HR: stable & adequate Hydration State: stable & adequate Neuraxial Anesthesia: was administered and sensory block is resolving Anesthetic Complications: no major complications apparent and Pt Satisfied with anesthetic care Epidural: Removed without complications and With tip intact
--- NOTE | 2021-11-18 05:45 | Anesthesia Procedure Note ---
Date of Service November 18, 2021 Anesthesia Post Epidural Note Vital Signs Vital Signs: Temp Pulse Resp BP Pulse Ox 37.0 C 57 L 16 108/51 L 95 11/18/21 04:45 11/18/21 04:45 11/18/21 04:45 11/18/21 04:45 11/18/21 04:45 Pain Intensity Episiotomy/Laceration: Pain Intensity: 1 Notes Mental Status: alert / awake / arousable Nausea / Vomiting: adequately controlled Pain: adequately controlled Airway Patency, RR, SpO2: stable & adequate BP & HR: stable & adequate Hydration State: stable & adequate Neuraxial Anesthesia: was administered and sensory block is resolving Anesthetic Complications: no major complications apparent and Pt Satisfied with anesthetic care Epidural: Removed without complications and With tip intact
[2021-11-18] MEDS: LEVOTHYROXINE SODIUM 100 MCG TABLET PO SCH (06:49)
[2021-11-18] MEDS: PRENATAL VITAMIN 1 TAB PO SCH (07:27)
[2021-11-18] MEDS: IBUPROFEN 600 MG TAB PO PRN ×3 (07:27→22:54)
[2021-11-18] MEDS: DOCUSATE SODIUM 100 MG CAP PO SCH ×2 (07:27→22:55)
[2021-11-18] MEDS: HYDROCORTISONE 10 MG TAB PO SCH ×2 (10:50→22:55)
[2021-11-18] MEDS ORDERED: Nursing to Pharmacy Communication SCH (18:00)
--- NOTE | 2021-11-19 05:37 | Obstetrical Progress Note ---
Date of Service <Mario Soria MD - Last Filed: 11/19/21 08:17> November 19, 2021 Assessment & Plan <Mario Soria MD - Last Filed: 11/19/21 08:17> (1) Vaginal delivery: 30 yo , complicated by hypothyroidism and [place]'s disease, now PPD1 from at 41wk6d -Discharge to home today, instructions reviewed with patient -Vitals reviewed- HDS, afebrile -GBS+, treated with PCN intrapartum -Resume home hydrocortisone 10 mg BID on discharge, was given stress dose earlier during labor -Hgb 11.5, stable -F/u in 6 weeks with OB <Cali Liu MD - Last Filed: 11/19/21 08:19> (1) Vaginal delivery: Subjective <Mario Soria MD - Last Filed: 11/19/21 08:17> Ambulation: ambulating normally Voiding: no voiding problems Passing Gas:: Yes Diet Tolerance:: regular diet Lochia:: Small Feeding Type:: breast feeding Current Pain Level(1-10): 0 Pt doing well overall, no acute complaints or distress. Pain well controlled with medication. Review of Systems Denies fever/chills. Denies dyspnea, cough. Denies chest pain. Denies breast pain or discharge. Denies dysuria. Denies headache. Denies back pain. Physical Exam <Mario Soria MD - Last Filed: 11/19/21 08:17> General: Alert, oriented, no acute distress Cardiac: Regular rate and rhythm, normal S1, S2. No murmurs appreciated. Respiratory: Clear to auscultation b/l with good air flow entry, symmetric chest rise and fall. No wheezes or crackles. No increased work of breathing or a ccessory muscle use Abdomen: Soft, nontender, nondistended. Fundus firm and palpable at 2 cm below umbilicus. No guarding or rebound. Skin: No rashes or lesions. Some areas of hyperpigmentation at baseline Extremities: Warm, dry, well-perfused with capillary refill <2s b/l. No lower extremity edema, erythema, swelling or calf tenderness b/l. Results & Data ([facility]) <Mario Soria MD - Last Filed: 11/19/21 08:17> Vital Signs (Past 12 Hours) Vital Signs Temp Pulse Resp BP Pulse Ox 11/19/21 03:28 36.8 C 70 18 102/58 L 94 11/18/21 23:30 36.4 C L 67 20 100/58 L 96 11/18/21 20:00 36.8 C 65 18 117/67 97 <Cali Liu MD - Last Filed: 11/19/21 08:19> Co-Signing Physician Notes Patient seen and evaluated with resident and agree with the above findings and plan. Doing well. Stable for discharge. Will resume home meds Resident Activity Tracking <Mario Soria MD - Last Filed: 11/19/21 08:17> Resident Involvement: Resident Care Provided Care Provided: OB Delivery
[2021-11-19] MEDS: LEVOTHYROXINE SODIUM 100 MCG TABLET PO SCH (06:33)
[2021-11-19 06:48] LABS: Hematocrit (blood only) 33.6 % (37-47); Hemoglobin 11.5 g/dL (12.0-16.0)
[2021-11-19] MEDS: DOCUSATE SODIUM 100 MG CAP PO SCH (08:05)
[2021-11-19] MEDS: PRENATAL VITAMIN 1 TAB PO SCH (08:05)
[2021-11-19] MEDS ORDERED: HYDROCORTISONE 10 MG TAB PO SCH (09:00)
[2021-11-19] MEDS ORDERED: FLUDROCORTISONE ACETATE 0.1 MG TAB PO SCH (09:00)
[2021-11-19] MEDS ORDERED: bisacodyL 5 MG TABEC PO SCH (20:00)
== END 2021-11-19 13:15 | disposition home or self-care (01) | DRG 806 ==
LOC: OPB 17:13 → 4S1 17:14 → 4E2 11-18 05:04